=== PATIENT | male | born 1995 | race African-American/Black ===

== ENCOUNTER 2017-05-15 19:02 | Emergency (ER) | payer OTHER ==
[~2017-05-15] VITALS: Ht 175.3 cm; Wt 60.0 kg
[2017-05-15 19:04] VITALS: BP 140/80; PULSE 71; RESP 16; TEMP 98.7; O2SAT 98
[2017-05-15] MEDS ORDERED: IBUPROFEN 600 MG TAB PO ONE (20:15)
[2017-05-15] MEDS ORDERED: DICL75TA PO (20:17)
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
== END 2017-05-15 21:11 | disposition home or self-care (01) ==
LOC: NEPK 19:02
DX: S90.31XA Contusion of right foot, initial encounter (principal); S80.11XA Contusion of right lower leg, initial encounter; V86.99XA Unspecified occupant of other special all-terrain or other off-road motor vehicle injured in nontraffic accident, initial encounter; Y99.0 Civilian activity done for income or pay
CPT/HCPCS: 73630; 99283; E0113